=== PATIENT | male | born 1950 | race Caucasian/White ===

== ENCOUNTER 2017-01-11 11:00 | Day surgery (SDC) | payer OTHER ==
[~2017-01-11] VITALS: Ht 170.2 cm; Wt 93.0 kg
[~2017-01-11 11:00] MED LIST: CITA10TA9 PO; MULT1CAP33 PO; NIAC500T2 PO; Sodium Chloride LOK Flush 10 mL Syringe IV PRN; fentaNYL-PF 50 mCg/mL 2 mL Inj IVPUSH PRN
[2017-01-11] MEDS: 0.9% Sodium Chloride 1,000 ML IV SCH ×4 (11:28→12:44)
[2017-01-11 11:29] VITALS: BP 120/75; PULSE 63; RESP 16; O2SAT 97
--- NOTE | 2017-01-11 12:48 | PCM.ENDCOL ---
Colonoscopy Date of Service: January 11, 2017 Physician Rony Carrillo MD Pre Procedure Diagnosis: Left-sided abdominal pain Post Procedure Dx & Findings: Diverticuli and polyp and hemorrhoids Procedure Colonoscopy PROCEDURE IN DETAIL: Prep adequate Withdrawal time 13 minutes After unremarkable rectal examination the Olympus video colonoscope was inserted patient's anal canal and was advanced to cecum. Landmarks were identified including the ileocecal valve and appendiceal orifice. Scope was withdrawn systematically. Visualized colonic mucosa showed healthy shiny mucosa with normal healthy-appearing vasculature. In the descending colon there was a 1 mm polyp which was removed completely using cold forceps. Multiple diverticuli noted small and large mostly in the sigmoid colon and it extended to the transverse colon. In the rectum retroflexion was done which showed hemorrhoids. Anal canal was inspected carefully on the way out and hemorrhoids noted. Impression Polyp 1 status post complete removal Diverticuli Hemorrhoids Recommendation Repeat colonoscopy in 5 years Diverticular diet Presedation Assessment Risks and Benefits Informed consent was obtained from the patient after all risks and benefits including but not limited to drug reaction, infection, pain, bleeding, perforation, as well as alternatives were discussed. Patient monitoring Continuous pulse oximetry, cardiac monitoring, blood pressure monitoring, IV access, and oxygen at 2L per nasal cannula. Periprocedural Fentanyl: Fentanyl 100mcg Incrementally Midazolam: Midazolam 5mg Incrementally Complications There were no periprocedural complications identified. Post Procedure Plan Post Procedure Recommendations 1. Restrict activities today. 2. Resume normal activities in the morning. 3. Resume medications. 4. Patient informed of normal post procedure side effects as bloating, drowsiness, blood streaking in the stool. 5. average risk CRCS. If colon polyps come back as: -Hyperplastic- can repeat colonoscopy in 10 years -Tubular adenoma- repeat colonoscopy in 5 years -Tubulovillous/villous adenoma- repeat colonoscopy in 3 years -If any dysplasia- return to clinic as soon as possible 6. Please don't hesitate to call me with any questions. Rony Carrillo MD January 11, 2017 12:48
[2017-01-11 12:50] VITALS: BP 101/57; PULSE 62; RESP 16; O2SAT 97
[2017-01-11 13:00] VITALS: BP 103/59; PULSE 58; RESP 16; O2SAT 93
[2017-01-11 13:09] VITALS: BP 103/60; PULSE 64; RESP 16; O2SAT 100
--- NOTE | 2017-01-12 16:07 | PATH ---
SURGICAL PATHOLOGY Attending Physician:Rony Carrillo M.D. CASE STATUS: Signed Out PATIENT NAME: MARAL UNGER PID: [id number] : 1950 DATE COLLECTED:01/11/2017 19:36 SPECIMEN: Colon, Biopsy CLINICAL HISTORY: 1). DESCENDING COLON POLYP FINAL DIAGNOSIS: Descending Colon, Polyp, Biopsy: Portions of tubular adenoma x2; negative for high-grade dysplasia. Portion of colorectal mucosa x1 with no diagnostic abnormality. ICD10: K63.5 GROSS DESCRIPTION: The specimen is received in one formalin filled container labeled with the patient's name, sublabeled "descending colon polyp" and consists of 3 portions of tissue which aggregate to 0.2 x 0.2 x 0.2 CM. The specimen is entirely submitted in one cassette. 01/11/2017 [facility] ICD-9 CODES: CPT CODES: 1: 13065 Electronically Signed Out Renetta Franco MD [facility] [address], [place] [address] Technical component performed at [facility], [address] [place] [address] Ave[address], [place], [address]
== END 2017-01-11 23:59 | disposition home or self-care (01) ==
LOC: END 11:00
PROVIDERS: ATTEND Internal Medicine
DX: D12.4 Benign neoplasm of descending colon (principal); K57.30 Diverticulosis of large intestine without perforation or abscess without bleeding; K64.8 Other hemorrhoids
CPT/HCPCS: 45380; 99153; G0500; J7030